=== PATIENT | male | born 1995 | race Caucasian/White ===

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

== ENCOUNTER 2018-12-22 14:00 | Emergency (ER) | payer BC | END 2018-12-22 14:21 | disposition home or self-care (01) | LOC: BURERS 14:00 | DX: K29.00 Acute gastritis without bleeding (principal); F17.210 Nicotine dependence, cigarettes, uncomplicated | CPT/HCPCS: 99283 ==

== ENCOUNTER 2018-12-27 01:44 | Emergency (ER) | payer BC | END 2018-12-27 02:12 | disposition home or self-care (01) | LOC: BURERS 01:44 | DX: T43.611A Poisoning by caffeine, accidental (unintentional), initial encounter (principal); F41.9 Anxiety disorder, unspecified; F17.210 Nicotine dependence, cigarettes, uncomplicated | CPT/HCPCS: 93005 ==